=== PATIENT | male | born 1945 | race Caucasian/White ===

== ENCOUNTER → 2021-06-14 15:49 | Outpatient (BNVA) | payer MEDICARE, BC, SELFPAY | PROVIDERS: PCP Internal Medicine; Visit Provider Psychiatry & Neurology Neurology | DX: G20 Parkinson's disease (principal); M47.812 Spondylosis without myelopathy or radiculopathy, cervical region; Z91.81 History of falling | CPT/HCPCS: Q3014 ==

== ENCOUNTER → 2021-07-18 13:05 | Outpatient (BNVA) | payer MEDICARE, BC, SELFPAY | PROVIDERS: Visit Provider Psychiatry & Neurology Neurology | DX: G20 Parkinson's disease (principal); M47.812 Spondylosis without myelopathy or radiculopathy, cervical region; Z91.81 History of falling | CPT/HCPCS: Q3014 ==

== ENCOUNTER → 2021-08-01 14:07 | Outpatient (BNVA) | payer MEDICARE, BC, SELFPAY | PROVIDERS: PCP Internal Medicine; Visit Provider Nurse Practitioner Family | DX: G20 Parkinson's disease (principal); M47.812 Spondylosis without myelopathy or radiculopathy, cervical region; Z91.81 History of falling | CPT/HCPCS: Q3014 ==

== ENCOUNTER → 2021-10-31 10:49 | Outpatient (BNVA) | payer MEDICARE, BC, SELFPAY | PROVIDERS: PCP Internal Medicine; Visit Provider Nurse Practitioner Family | DX: G20 Parkinson's disease (principal); M47.812 Spondylosis without myelopathy or radiculopathy, cervical region; Z99.3 Dependence on wheelchair | CPT/HCPCS: 99212 ==

== ENCOUNTER → 2022-02-14 08:36 | Outpatient (BNVA) | payer MEDICARE, BC, SELFPAY | PROVIDERS: Visit Provider Nurse Practitioner Family | DX: G20 Parkinson's disease (principal); R13.10 Dysphagia, unspecified; M47.812 Spondylosis without myelopathy or radiculopathy, cervical region; Z91.81 History of falling | CPT/HCPCS: Q3014 ==

== ENCOUNTER → 2022-03-28 09:12 | Outpatient (BNVA) | payer MEDICARE, BC, SELFPAY | PROVIDERS: PCP Internal Medicine; Visit Provider Nurse Practitioner Family | DX: G20 Parkinson's disease (principal); M47.812 Spondylosis without myelopathy or radiculopathy, cervical region; R13.10 Dysphagia, unspecified | CPT/HCPCS: Q3014 ==

== ENCOUNTER → 2022-07-25 09:49 | Outpatient (BNVA) | payer MEDICARE, BC, SELFPAY | PROVIDERS: PCP Internal Medicine; Visit Provider Psychiatry & Neurology Neurology | DX: G20 Parkinson's disease (principal); M47.812 Spondylosis without myelopathy or radiculopathy, cervical region; R13.10 Dysphagia, unspecified; Z79.899 Other long term (current) drug therapy; Z91.81 History of falling | CPT/HCPCS: 99212 ==

== ENCOUNTER → 2022-10-13 11:22 | Outpatient (BNVA) | payer MEDICARE, BC, SELFPAY | PROVIDERS: PCP Internal Medicine; Visit Provider Psychiatry & Neurology Neurology | DX: M47.812 Spondylosis without myelopathy or radiculopathy, cervical region (principal); G20 Parkinson's disease; R13.10 Dysphagia, unspecified; Z99.3 Dependence on wheelchair; Z79.891 Long term (current) use of opiate analgesic | CPT/HCPCS: 99212 ==

== ENCOUNTER 2022-12-22 10:20 | Outpatient (AMB) | payer MEDICARE, BC, SELFPAY ==
--- NOTE | 2022-12-22 10:21 | A.OFFVIS_ITS ---
Intake Vital Signs 12/22/22 10:26 BP 114/74 Blood Pressure Location Rt brachial Position Sitting Pulse 73 Pulse Source Pulse Oximeter Pulse Oximetry (%) 96 Oxygen Delivery Method Room Air Intake Visit Reasons: 2m follow up Intake Note: Patient presents for 2 month follow up. Allergies No Known Allergies Allergy (Verified 12/22/22 10:23) Medication List - Last Reconciled 12/22/22 by Melissa Mendes MD albuterol sulfate 90 mcg/actuation 0 mcg inhalation amlodipine 10 mg PO DAILY baclofen 5 mg PO TID carbidopa-levodopa 25-100 mg 2 tabs qid for 4 weeks then 2 tbs 5 times a day orally; 2 tabs qid for 4 weeks then 2 tabs 5 times a day 90 days cetirizine 10 mg PO DAILY cholecalciferol (vitamin D3) (Vitamin D3) 50 mcg PO DAILY fluticasone propionate 50 mcg/actuation 1 spray intranasal DAILY furosemide 20 mg PO DAILY gabapentin 300 mg PO BID hydralazine 25 mg PO DAILY PRN losartan 100 mg PO DAILY melatonin 5 mg PO BEDTIME multivitamin (Daily Multi-Vitamin tablet) 1 tab PO DAILY omeprazole 40 mg PO DAILY oxycodone-acetaminophen 5-325 mg 1 tab PO BID PRN sennosides (senna) 8.6 mg PO BEDTIME simvastatin 20 mg PO DAILY tamsulosin 0.4 mg PO DAILY HPI HPI Comments History of Present Illness Details 77y/o male patient presents comes for follow up with his for follow up of Parkinson's and cervical spondylosis. Since his last visit he was hospitalized for Pneumonia ( Oct 27 2022) for 1 week and was in rehab for 4 weeks. He was unable to do MRI c spine or EMG Now he has [facility] - for pressure ulcers , speech therapy, physical therapy.He has [employer] every morning and night. He is on Sinemet 25/100 2 tabs 5 times a day . He has home PT.He does not walk. He has confusional arousals. He denies hallucinations He has abnormal leg movements - used to be on gabapentin. Pt tolerates rasagiline and Sinemet, denies side effects. . Pt can only stand up with assistance and he is mostly wheelchair bound. Pt's states that he drools all the time, has difficulty swallowing. Pt continues to have right shoulder and wrist pain and limited ROM. Pt is on Oxycodone-Acetaminophen 5-325 mg for pain. Denies hallucination or lightheadedness. Gaby constipation. ? PFSH Medical History Falls HTN (hypertension) Hyperlipidemia Numbness and tingling Obesity Surgical History H/O neck surgery History of hand surgery Family History Brother Crohn's disease Heart disease Diabetes Father Alcoholic Mother Dementia Sister Lung cancer Social History Household Members: Spouse Alcohol intake: never Patient Tobacco Use Status: Former Tobacco user Quit Date: 2011 Smoked: 50 +/- Physical Exam Vital Signs: Last Vital Signs Pulse 73 12/22/22 10:26 BP 114/74 12/22/22 10:26 Pulse Ox 96 12/22/22 10:26 Oxygen Delivery Method Room Air 12/22/22 10:26 Const Other: severe bradykinesia No tremors severely decreased facial expression and blink General: cooperative Nutritional Appearance: average body habitus Limitations: wheelchair Neuro Other: Increased tone in all extremities - R>L No tremors severely decreased blink and facial expression severe dysarthria severe decreased FFM and foot taps Deep tendon reflexes (DTR's): Right triceps reflex intensity grade: 2+, Left triceps reflex intensity grade: 2+, Rt Biceps (C5, C6): 2+, Left biceps reflex intensity grade: 2+, Right brachioradialis reflex intensity grade: 2+, Left brachioradialis reflex intensity grade: 2+, Right patellar reflex intensity grade: 3+ and Left patellar reflex intensity grade: 3+ Assessment & Plan Assessment & Plan (1) Cervical spondylosis: Code(s): M47.812 - Spondylosis without myelopathy or radiculopathy, cervical region (2) Falls: Code(s): W19.XXXA - Unspecified fall, initial encounter (3) Parkinsons disease: Code(s): G20 - Parkinson's disease (4) Dysphagia: Code(s): R13.10 - Dysphagia, unspecified Plan Sinemet 25/100 mg 2 tabs 5 times a day Continue to do home PT and ST. Patients and family are more interested in palliative care. Advised patient and his to keep his legs elevated to prevent bilateral lower extremities' edema. MRI C spine- patient declined EMG Ue and paraspinals - ? ALS variant- patient declined Coding Level of Care Code Est Pt Level 4 (74503) Diagnoses Cervical spondylosis M47.812 Falls W19.XXXA Parkinsons disease G20 Dysphagia R13.10
[2022-12-22 10:26] VITALS: BP 114/74; PULSE 73; O2SAT 96
== END 2022-12-22 10:47 | disposition home or self-care (01) ==
PROVIDERS: Visit Provider Psychiatry & Neurology Neurology
DX: G20 Parkinson's disease (principal); M47.812 Spondylosis without myelopathy or radiculopathy, cervical region; R29.6 Repeated falls; R13.10 Dysphagia, unspecified
CPT/HCPCS: 99214

== ENCOUNTER → 2022-12-22 10:20 | Outpatient (BNVA) | payer MEDICARE, BC, SELFPAY | PROVIDERS: Visit Provider Psychiatry & Neurology Neurology | DX: G20 Parkinson's disease (principal); M47.812 Spondylosis without myelopathy or radiculopathy, cervical region; R13.10 Dysphagia, unspecified; Z99.3 Dependence on wheelchair | CPT/HCPCS: 99212 ==